=== PATIENT | female | born 1965 | race Caucasian/White ===

== ENCOUNTER → 2020-08-12 10:29 | Outpatient (BNVA) | payer OTHER, SELFPAY | PROVIDERS: Family Provider Family Medicine; Visit Provider Family Medicine | DX: E78.00 Pure hypercholesterolemia, unspecified (principal); F32.0 Major depressive disorder, single episode, mild; I10 Essential (primary) hypertension; G47.33 Obstructive sleep apnea (adult) (pediatric); Z12.31 Encounter for screening mammogram for malignant neoplasm of breast; Z00.00 Encounter for general adult medical examination without abnormal findings | CPT/HCPCS: 80053; 80061; 85025 ==

== ENCOUNTER 2020-08-29 15:02 | Outpatient (CLI) | payer OTHER, SELFPAY ==
--- NOTE | 2020-08-29 15:30 | MM_ITS ---
WS: [id number] BILATERAL SCREENING DIGITAL MAMMOGRAM WITH CAD HISTORY: screening COMPARISON: 08/22/2019 and 06/30/2018 Bilateral CC and MLO views submitted. Computer aided detection analyzed. Breast composition: There are scattered areas of fibroglandular density. No suspicious masses, microc alcifications or architectural distortion. Benign calcifications in each breast. No suspicious masses . MM/[id number] IMPRESSION: BI-RADS: 2-Benign FOLLOW UP: 1 Year Follow-up
== END 2020-08-29 15:03 | disposition home or self-care (01) ==
LOC: RADSHAW 15:07
PROVIDERS: PCP Family Medicine; Visit Provider Family Medicine
DX: Z12.31 Encounter for screening mammogram for malignant neoplasm of breast (principal)
CPT/HCPCS: 77067

== ENCOUNTER 2020-09-09 06:51 | Day surgery (SDC) | payer OTHER, SELFPAY ==
[2020-09-05 12:31] VITALS: BMI 48.7
[2020-09-09 07:07] VITALS: BP 174/100; PULSE 95; RESP 18; TEMP 37; O2SAT 94
--- NOTE | 2020-09-09 07:13 | ANES.PREANE2 ---
Pre-Anesthetic Assessment Pre-Anesthetic Assessment: Height/Weight: Height 1.68 m Weight 136.985 kg Temp Pulse Resp BP Pulse Ox 98.6 F 95 18 174/100 94 09/09/20 07:07 09/09/20 07:07 09/09/20 07:07 09/09/20 07:07 09/09/20 07:07 Preop Diagnosis: screening colonoscopy Proposed Procedure: Operation Date: 09/09/20 08:00 Proposed Procedures p Colonoscopy 426472 Z12.11(Not Applicable) - Shravan Gonsalez MD Last intake: Intake Last Liquid Date 09/08/20 Last Liquid Time 20:00 Last Solid Date 09/07/20 Last Solid Time 20:00 Social: Social History: No alcohol and No tobacco Exam: Pre-Anes Outpt Exam: alert, oriented x 3, clear to auscultation bilaterally and regular rate & rhythm Airway: Submandibular: WNL Cervical ROM: WNL MP: 2 Additional comments: teeth ok History/ROS: No significant history except as noted Pulmonary: Pulmonary: [place] and Sleep apnea CV/HEM: CV/HEM: HTN : : None reported Hepatic: Hepatic: None reported GI: GI: GERD Metabolic: Metabolic: Hyperlipidemia and Morbid obesity Musc/skel: Musc/skel: None reported Neuropsych: Neuropsych: Depression Anesthetic Plan: ASA status: 2 Anesthesia: Anesthesia Evaluation and MAC Risk of > 500 ml blood loss (7ml/kg in children): No PFSH Anesthesia PFSH: Medical History Hypercholesteremia Hypertension Mild depression Surgical History H/O colonoscopy H/O esophagogastroduodenoscopy History of carpal tunnel surgery History of delivery History of cholecystectomy History of myringotomy History of tonsillectomy History of tonsillectomy and adenoidectomy Family History Denies family history of Anesthesia complication Bleeding disorder Social History Smoking and tobacco status: never smoked Alcohol intake: never Data Anesthesia Cardiac Studies: No Data to Display
[2020-09-09] MEDS: sodium chloride 0.9% 1,000 ML 30 ML IV (07:21)
--- NOTE | 2020-09-09 07:25 | P.HP_ITS ---
Same Day Surgery H&P Indication for Procedure/HPI DATE OF PROCEDURE: September 09, 2020 CHIEF COMPLAINT/INDICATIONFOR SURGICAL PROCEDURE: screening colonoscopy PREOP DIAGNOSIS: screening colonoscopy PLANNED PROCEDRUE: Operation Date: 09/09/20 08:00 Proposed Procedures p Colonoscopy 616784 Z12.11(Not Applicable) - Srhavan Gonsalez MD Medications/Allergies* Home Medications Medication Instructions Recorded Confirmed Type cetirizine 10 mg capsule 10 mg PO DAILY 08/12/20 09/05/20 History naproxen sodium 220 mg capsule 220 mg PO BID PRN 08/12/20 09/05/20 History Allergies/Adverse Reactions Allergy/AdvReac Type Severity Reaction Status Date / Time Sulfa (Sulfonamide Allergy itching Verified 08/22/20 16:28 Antibiotics) Current Medications: Generic Name Dose Route Start Last Admin Trade Name Freq PRN Reason Stop Dose Admin Sodium Chloride 1,000 mls @ 30 mls/hr 09/09/20 07:00 09/09/20 07:21 Sodium Chloride 0.9% IV 09/10/20 06:59 30 mls/hr .Q24H PHAIN Administration Pertinent History/Comorbid Conditions* Medical History (Updated 08/18/20 @ 11:18 by Cme Napier MD) Hypercholesteremia Hypertension Mild depression Surgical History (Updated 09/09/20 @ 07:15 by Donny Lockett MD) H/O colonoscopy H/O esophagogastroduodenoscopy History of carpal tunnel surgery History of delivery History of cholecystectomy History of myringotomy History of tonsillectomy History of tonsillectomy and adenoidectomy Family History (Updated 08/22/20 @ 16:29 by Cassi Murri[place] LPN) Denies family history of Anesthesia complication Bleeding disorder Social History Smoking and tobacco status: never smoked Alcohol intake: never Pertinent Exam Findings alert, oriented x 3, regular rate & rhythm and operative site marked Recommendations Surgery/Procedure today Coding Level of Care Code Acute Microbiological Lab Technician for Swathi Coyne
[2020-09-09 08:03] VITALS: BP 117/53; PULSE 81; RESP 18; TEMP 36.6; O2SAT 93
[2020-09-09 08:20] VITALS: BP 134/70; PULSE 83; RESP 18; O2SAT 93
== END 2020-09-09 08:45 | disposition home or self-care (01) ==
PROVIDERS: PCP Family Medicine; Visit Provider Surgery
PROC: 0DJD8ZZ Inspection of Lower Intestinal Tract, Via Natural or Artificial Opening Endoscopic (ICD-10-PCS; CPT 45378; principal; 2020-09-09 08:00)
DX: Z12.11 Encounter for screening for malignant neoplasm of colon (principal); D12.5 Benign neoplasm of sigmoid colon; K64.8 Other hemorrhoids; E78.00 Pure hypercholesterolemia, unspecified; I10 Essential (primary) hypertension; F32.9 Major depressive disorder, single episode, unspecified
CPT/HCPCS: 12345; 45380; 88305; J2704; J7030

== ENCOUNTER 2020-09-24 12:00 | Outpatient (CLI) | payer OTHER, SELFPAY | END 2020-09-24 12:01 | disposition home or self-care (01) | LOC: SLEEP 09-25 11:47 | PROVIDERS: PCP Family Medicine; Visit Provider Family Medicine | DX: G47.33 Obstructive sleep apnea (adult) (pediatric) (principal) | CPT/HCPCS: G0399 ==

== ENCOUNTER 2020-11-10 20:00 | Outpatient (CLI) | payer OTHER, SELFPAY | END 2020-11-10 20:01 | disposition home or self-care (01) | LOC: SLEEP 11-11 09:13 | PROVIDERS: PCP Family Medicine; Visit Provider Family Medicine | DX: G47.33 Obstructive sleep apnea (adult) (pediatric) (principal) | CPT/HCPCS: 95811 ==

== ENCOUNTER → 2021-06-29 14:44 | Outpatient (BNVA) | payer OTHER, SELFPAY | PROVIDERS: PCP Family Medicine; Visit Provider Family Medicine | DX: M17.0 Bilateral primary osteoarthritis of knee (principal) | CPT/HCPCS: 73562 ==

== ENCOUNTER → 2021-08-12 10:00 | Outpatient (BNVA) | payer OTHER, SELFPAY | PROVIDERS: PCP Family Medicine; Visit Provider Family Medicine | DX: Z00.00 Encounter for general adult medical examination without abnormal findings (principal); E78.00 Pure hypercholesterolemia, unspecified; M17.0 Bilateral primary osteoarthritis of knee; I10 Essential (primary) hypertension | CPT/HCPCS: 80053; 80061; 85025 ==

== ENCOUNTER 2021-11-09 08:20 | Outpatient (CLI) | payer OTHER, SELFPAY ==
--- NOTE | 2021-11-09 08:34 | MM_ITS ---
WS: [id number] BILATERAL SCREENING DIGITAL MAMMOGRAM WITH CAD HISTORY: SCREENING COMPARISON: 08/29/2020, 08/22/2019 Bilateral CC and MLO views submitted. Computer aided detection analyzed. Breast composition: There are scattered areas of fibroglandular density. No suspicious masses, microc alcifications or architectural distortion. Benign scattered tiny calcifications within each breast. N o focal cluster of calcifications. MM/[id number] IMPRESSION: BI-RADS: 2-Benign FOLLOW UP: 1 Year Follow-up
== END 2021-11-09 08:21 | disposition home or self-care (01) ==
LOC: RADSHAW 08:26
PROVIDERS: PCP Family Medicine; Visit Provider Family Medicine
DX: Z12.31 Encounter for screening mammogram for malignant neoplasm of breast (principal)
CPT/HCPCS: 77067

== ENCOUNTER → 2022-01-27 11:35 | Outpatient (BNVA) | payer OTHER, SELFPAY | PROVIDERS: PCP Family Medicine; Visit Provider Family Medicine | DX: E11.9 Type 2 diabetes mellitus without complications (principal) | CPT/HCPCS: 83036 ==

== ENCOUNTER → 2022-08-09 09:50 | Outpatient (BNVA) | payer OTHER, SELFPAY | PROVIDERS: PCP Family Medicine; Visit Provider Family Medicine | DX: I10 Essential (primary) hypertension (principal); Z12.4 Encounter for screening for malignant neoplasm of cervix | CPT/HCPCS: 80053; 85025; 88175 ==

== ENCOUNTER → 2022-08-11 14:17 | Outpatient (BNVA) | payer OTHER, SELFPAY | PROVIDERS: PCP Family Medicine; Visit Provider Family Medicine | DX: E78.00 Pure hypercholesterolemia, unspecified (principal) | CPT/HCPCS: 80061 ==

== ENCOUNTER 2022-11-19 06:54 | Outpatient (CLI) | payer OTHER, SELFPAY ==
--- NOTE | 2022-11-19 07:25 | MM_ITS ---
WS: [id number] BILATERAL SCREENING DIGITAL TOMOSYNTHESIS MAMMOGRAM WITH CAD HISTORY: SCREENING COMPARISON: 11/09/2021, 08/29/2020 Bilateral CC and MLO views with tomosynthesis and synthetic mammography submitted. Computer aided det ection analyzed. Breast composition: There are scattered areas of fibroglandular density. No suspicious masses, microc alcifications or architectural distortion. Benign scattered calcifications. MM/[place] [id number] IMPRESSION: BI-RADS: 2-Benign FOLLOW UP: 1 Year Follow-up
== END 2022-11-19 06:55 | disposition home or self-care (01) ==
LOC: RAD 06:55
PROVIDERS: PCP Family Medicine; Visit Provider Family Medicine
DX: Z12.31 Encounter for screening mammogram for malignant neoplasm of breast (principal)
CPT/HCPCS: 77063; 77067

== ENCOUNTER 2023-11-07 10:52 | Outpatient (CLI) | payer OTHER, SELFPAY ==
--- NOTE | 2023-11-07 10:57 | XRR_ITS ---
PROCEDURE INFORMATION: Exam: XR Right Knee Exam date and time: 11/07/2023 11:09 AM Age: 58 years old Clinical indication: Pain; Knee; Right; Additional info: Worsening pain. No history of recent trauma or surgery is provided. TECHNIQUE: Imaging protocol: Radiologic exam of the right knee. 3image(s) are provided. Views: 3 views. COMPARISON: CR XR knee RT 3V* [id number] 06/29/2021 2:49 PM FINDINGS: Bones/joints: There is a small amount of joint fluid present. There is some chronic multi compartmental degeneration present with spurring and narrowing including at the patellofemoral and medial compartments along with some subchondral cystic related change. This can also be seen with some chondromalacia for example at the posterior patellar surface. Osseous alignment is maintained. No interval displaced fracture or dislocation is appreciated. Soft tissues: No radiopaque foreign body or subcutaneous emphysema is appreciated. There is some slight prominence of the soft tissues overall. There are some chronic soft tissue type calcifications for example posteriorly. Other findings: No other significant interval changes are appreciated. XR/XR knee RT 3V* [id number] IMPRESSION: There is some chronic multi compartmental degeneration demonstrated with spurring and narrowing most pronounced of the patellofemoral and medial compartments with some suspected chondromalacia.
== END 2023-11-07 10:53 | disposition home or self-care (01) ==
LOC: RAD 10:53
PROVIDERS: PCP Family Medicine; Visit Provider Family Medicine
DX: M17.0 Bilateral primary osteoarthritis of knee (principal); Z01.89 Encounter for other specified special examinations
CPT/HCPCS: 73562; 80053; 80061; 85025

== ENCOUNTER → 2023-11-11 07:40 | Outpatient (BNVA) | payer OTHER, SELFPAY | PROVIDERS: PCP Family Medicine; Visit Provider Otolaryngology | DX: H65.33 Chronic mucoid otitis media, bilateral (principal); H90.0 Conductive hearing loss, bilateral; H69.93 Unspecified Eustachian tube disorder, bilateral; E66.01 Morbid (severe) obesity due to excess calories; G47.33 Obstructive sleep apnea (adult) (pediatric); Z68.42 Body mass index [BMI] 45.0-49.9, adult; Z99.89 Dependence on other enabling machines and devices | CPT/HCPCS: 99204 ==

== ENCOUNTER 2023-11-20 15:02 | Outpatient (CLI) | payer OTHER, SELFPAY ==
--- NOTE | 2023-11-20 15:12 | XRR_ITS ---
PROCEDURE INFORMATION: Exam: XR Right Hip Exam date and time: 11/20/2023 3:13 PM Age: 58 years old Clinical indication: Right hip; Patient HX: Intermittent RT hip pain TECHNIQUE: Imaging protocol: Radiologic exam of the right hip. Views: 1 view hip with pelvis when performed. COMPARISON: No relevant prior studies available. FINDINGS: Bones/joints: No acute fracture. Mild DJD of the right hip. Soft tissues: Unremarkable. XR/XR hip RT 2-3V wo/w pel* [id number] IMPRESSION: No acute findings. Mild DJD of the right hip.
== END 2023-11-20 15:03 | disposition home or self-care (01) ==
PROVIDERS: PCP Family Medicine; Visit Provider Emergency Medicine
DX: M16.11 Unilateral primary osteoarthritis, right hip (principal)
CPT/HCPCS: 73502

== ENCOUNTER 2023-11-30 09:41 | Outpatient (CLI) | payer OTHER, SELFPAY ==
--- NOTE | 2023-11-30 09:41 | MM_ITS ---
WS: [id number] BILATERAL SCREENING DIGITAL TOMOSYNTHESIS MAMMOGRAM WITH CAD HISTORY: SCREENING COMPARISON: 11/19/2022, 11/09/2021 Bilateral CC and MLO views with tomosynthesis and synthetic mammography submitted. Computer aided det ection analyzed. Breast composition: There are scattered areas of fibroglandular density. No suspicious masses, microc alcifications or architectural distortion. Benign calcifications scattered within each breast. IMPRESSION: MM/[place] [id number] BI-RADS: 2-Benign FOLLOW UP: 1 Year Follow-up
== END 2023-11-30 09:42 | disposition home or self-care (01) ==
LOC: RAD 09:41
PROVIDERS: PCP Family Medicine; Visit Provider Family Medicine
DX: Z12.31 Encounter for screening mammogram for malignant neoplasm of breast (principal)
CPT/HCPCS: 77063; 77067

== ENCOUNTER → 2023-12-12 16:24 | Outpatient (BNVA) | payer OTHER, SELFPAY | PROVIDERS: PCP Family Medicine; Visit Provider Otolaryngology | DX: H69.93 Unspecified Eustachian tube disorder, bilateral (principal); H90.0 Conductive hearing loss, bilateral | CPT/HCPCS: 99212; 99213 ==

== ENCOUNTER → 2024-01-23 14:12 | Outpatient (BNVA) | payer OTHER, SELFPAY | PROVIDERS: PCP Family Medicine; Visit Provider Otolaryngology | DX: H61.23 Impacted cerumen, bilateral (principal); H90.0 Conductive hearing loss, bilateral; H69.93 Unspecified Eustachian tube disorder, bilateral | CPT/HCPCS: 69210; 99213 ==

== ENCOUNTER → 2024-02-20 14:27 | Outpatient (BNVA) | payer OTHER, SELFPAY | PROVIDERS: PCP Family Medicine; Visit Provider Family Medicine | DX: N95.0 Postmenopausal bleeding (principal) | CPT/HCPCS: 80053; 85025; 86304 ==

== ENCOUNTER 2024-02-22 13:30 | Outpatient (CLI) | payer OTHER, SELFPAY ==
--- NOTE | 2024-02-22 13:45 | US_ITS ---
WS: [id number] US pelv w/transvag [id number] HISTORY: post menopausal bleeding COMPARISON: None available. Nondiagnostic transvaginal evaluation. Imaging is slightly better quality on the transabdominal exam. Uterus: 8.1 cm x 4.9 cm x 4.8 cm. Normal size anteverted uterus. No fibroid or mass. Endometrium: 0.2 cm. Thin endometrium seen only on transabdominal imaging. Neither ovary is identified. No adnexal mass. US/US pelv w/transvag [id number] IMPRESSION: 1. This is a very limited and incomplete evaluation of the endometrium. 2. Transvaginal imaging quality is suboptimal. 3. Endometrium seen by transabdominal imaging is thin at 2 mm.
== END 2024-02-22 13:31 | disposition home or self-care (01) ==
LOC: RAD 13:31
PROVIDERS: PCP Family Medicine; Visit Provider Family Medicine
DX: N95.0 Postmenopausal bleeding (principal)
CPT/HCPCS: 76830; 76856

== ENCOUNTER 2024-04-17 08:57 | Day surgery (SDC) | payer OTHER, SELFPAY ==
--- NOTE | 2024-04-09 08:46 | ANES.PREANE2 ---
Pre-Anesthetic Assessment Height/Weight: Height 1.68 m Operation Date: 04/17/24 07:10 Proposed Procedures p Hysteroscopy w/ Myosure 71862, N 95.0(Not Applicable) - Corey Castañeda MD s Dilation And Curettage (D&C)(Not Applicable) - Corey Castañeda MD Familial anesthetic complications: None Was Beta Eladio taken within 24 hours: N/A Was Clonidine taken within 24 hours: N/A Social No alcohol and No tobacco Exam alert, oriented x 3, clear to auscultation bilaterally and regular rate & rhythm Airway Mallampati: Class II Dentition: full Pulmonary Sleep Apnea CV/HEM Hypertension Metabolic Hyperlipidemia and Morbid Obesity Anesthetic Plan ASA status: 3 Anesthesia: General Risk of > 500 ml blood loss (7ml/kg in children): No Medications/Allergies Home Medications Medication Instructions Recorded Confirmed Last Taken Type cetirizine 10 mg capsule (Zyrtec) 10 mg PO DAILY 08/12/20 04/09/24 04/09/24 History fluticasone propionate 50 2 spray intranasal DAILY 12 months 11/11/23 04/09/24 04/08/24 Rx mcg/actuation nasal #16 grams spray,suspension acetaminophen 650 mg 650 mg PO Q8H 04/09/24 04/09/24 04/09/24 History tablet,extended release (Tylenol Arthritis Pain) hydrochlorothiazide 25 mg tablet 25 mg PO DAILY 04/09/24 04/09/24 04/09/24 History lisinopril 20 mg tablet 20 mg PO DAILY 04/09/24 04/09/24 04/09/24 History oxybutynin chloride 5 mg tablet 10 mg PO DAILY 04/09/24 04/09/24 04/09/24 History simvastatin 10 mg tablet 10 mg PO DAILY 04/09/24 04/09/24 04/09/24 History venlafaxine 75 mg tablet 75 mg PO DAILY 04/09/24 04/09/24 04/09/24 History Allergies Allergy/AdvReac Type Severity Reaction Status Date / Time Sulfa (Sulfonamide Allergy itching Verified 03/05/24 09:34 Antibiotics) [facility] Anesthesia Medical History Osteoarthritis of both knees Hypertension Mild depression Hypercholesteremia Surgical History Status post colonoscopy with polypectomy (09/09/20) History of tonsillectomy History of myringotomy History of carpal tunnel surgery History of tonsillectomy and adenoidectomy History of cholecystectomy History of delivery H/O esophagogastroduodenoscopy H/O colonoscopy Family History Denies family history of Anesthesia complication Bleeding disorder Social History Smoking and tobacco/nicotine status: never used tobacco/nicotine Alcohol intake: never Substance/Drug Use: never Data Anesthesia Cardiac Studies: No Data to Display
[2024-04-17] VITALS (11 sets, daily range): BP systolic 133–190; BP diastolic 65–96; PULSE 81–89; RESP 12–18; TEMP 36.3–36.8; O2SAT 94–100; BMI 46.6
[2024-04-17] MEDS: sodium chloride 0.9% 1,000 ML 30 ML IV ×2 (09:53→11:38)
[2024-04-17 10:05] LABS: Basophils # 0.1 10^3/uL (0.0-0.1); Basophils % 0.7 %; Eosinophils # 0.1 10^3/uL (0.0-0.8); Eosinophils % 1.6 %; Lymphocytes # 2.1 10^3/uL (0.8-4.8); Lymphocytes % 27.9 %; Mean Corpuscular HGB Conc 33.8 g/dL (30-55); Mean Corpuscular Hemoglobin 31.5 pg (27-33); Mean Corpuscular Volume 93.1 fl (85-98); Mean Platelet Volume 9.3 fL (7.4-10.4); Monocytes # 0.6 10^3/uL (0.2-0.9); Monocytes % 8.6 %; Neutrophils # 4.47 10^3/uL (1.8-7.7); Neutrophils % 60.9 %; Nucleated Red Blood Cells % 0 %; Platelet Count 206 10^3/cmm (157-399); Red Blood Count 4.51 10^6/uL (3.85-5.65); White Blood Count 7.34 10^3/uL (3.29-11.43)
--- NOTE | 2024-04-17 10:10 | ANES.PAUD2 ---
Pre-Anesthetic Update Pre-Anesthetic Assessment: Date of Surgery/Procedure: 04/17/24 Proposed Procedure: Operation Date: 04/17/24 10:40 Proposed Procedures p Hysteroscopy w/ Myosure 90668, N 95.0(Not Applicable) - Corey Castañeda MD s Dilation And Curettage (D&C)(Not Applicable) - Corey Castañeda MD Any changes to Pre-Anesthetic Assessment?: No Last Intake: Intake Last Liquid Date 04/16/24 Last Liquid Time 22:00 Last Solid Date 04/16/24 Last Solid Time 22:00 Labs Last 48hrs: Short CBC 04/17/24 Range/Units 09:50 WBC 7.34 (3.29-11.43) 10^ 3/uL Hgb 14.20 (11.27-16.99) g/ dL Hct 42.0 (36-47) % MCV 93.1 (85-98) fl Plt Count 206 (157-399) 10^3/c mm Neut % (Auto) 60.9 % Neut # (Auto) 4.47 (1.8-7.7) 10^3/u L Vitals: Temperature 98.3 F 04/17/24 09:31 Temperature Source Temporal Artery S can 04/17/24 09:31 Pulse Rate 81 04/17/24 09:31 Pulse Rhythm Regular 04/17/24 09:31 Pulse Strength 3+ Normal 04/17/24 09:31 Respiratory Rate 18 04/17/24 09:31 Blood Pressure 176/91 04/17/24 09:54 Blood Pressure Ilz n 119 04/17/24 09:54 Pulse Oximetry 95 04/17/24 09:31 Oxygen Delivery Me thod Room Air 04/17/24 09:31 Exam: Pre-Anes Outpt Exam: alert, oriented x 3, clear to auscultation bilaterally and regular rate & rhythm Cardiac Studies: No Data to Display
[2024-04-17 10:31] LABS: Anion Gap 17.9 (5-19); Blood Urea Nitrogen 13 mg/dL (6-20); Calcium 9.2 mg/dL (8.5-10.5); Carbon Dioxide 26 mmol/L (22-29); Chloride 103 mmol/L (98-107); Glomerular Filtration Rate 102.7 mL/min (90-130); Glucose 111 mg/dL (65-115); Osmolality Calculated 297 mOsm/kg (285-295); Potassium 3.9 mmol/L (3.5-5.1); Sodium 143 mmol/L (136-145)
[2024-04-17] MEDS: ceFAZolin 3,000 MG in sodium chloride 0.9% (plus) 100 ML 200 MG IV (11:33)
--- NOTE | 2024-04-17 11:58 | W.PM.OPSUD ---
Surgery/Procedure H&P Update DATE OF PROCEDURE: April 17, 2024 DATE H&P PERFORMED: 04/06/24 H&P UPDATE INFORMATION: I have reviewed H&P completed within last 30 days, I have examined patient prior to procedure and No changes to prior documentation PLANNED PROCEDURE: Operation Date: 04/17/24 10:40 Proposed Procedures p Hysteroscopy w/ Myosure 69096, N 95.0(Not Applicable) - Corey Castañeda MD s Dilation And Curettage (D&C)(Not Applicable) - Corey Castañeda MD
--- NOTE | 2024-04-17 13:14 | PM.OP ---
Operative Report Date of procedure: April 17, 2024 Pre-op diagnosis: Postmenopausal bleed Post-op diagnosis: same Procedure done: Dilation and curettage Specimens removed/disposition: Endometrial curettings Surgeon: Corey Castañeda MD Estimated blood loss (mL): 5 IV fluids (mL): 400 Complications: Hysteroscope could not be used to assess uterine cavity due to body habitus and the scope was not long enough. Findings: cervical stenosis Procedure: After informed consent, the risks included but were not limited to bleeding, infection, injury to internal organs. The patient was counseled on a possible laparotomy and on the potential need for hysterectomy. The patient expressed understanding of the risks involved, all questions were answered, and the patient consented to the procedure. The patient was taken to the operating room where general anesthesia was administered. She was placed in the dorsal lithotomy position and prepped and draped in sterile fashion. A time out procedure was performed. The patient was examined under anesthesia and found to have a normal uterus with normal adnexa. A sterile large speculum was placed in the vaginato be able to reach the cervix, and the anterior lip of cervix was grasped with the single toothed tenaculum. The uterus was then gently sounded to 6 cm, and the cervix was dilated with cervical dilators. A 2.7-cm hysteroscope was advanced gently into the vagina but was not long enough to reach the the cervix and uterine cavity could not be visualized. A curettage was then performed until a gritty texture was noted. There was minimal bleeding noted and the tenaculum removed with goad hemostasis noted. The patient tolerated the procedure well. The patient was taken to the recovery area in stable condition.
--- NOTE | 2024-04-17 13:40 | ANE.PACU2 ---
Inpatient post-anesthesia follow up: Airway intact: Yes Vital signs: Temperature 97.4 F Pulse Rate 82 Respiratory Rate 17 Blood Pressure 150/83 Pulse Oximetry 94 Oxygen Delivery Me thod Room Air Oxygen Flow Rate 6 Fraction of Inspir ed Oxygen Hydration adequate: Yes Nausea and vomiting: No Pain level: 1 Mental status: Baseline
== END 2024-04-17 14:32 | disposition home or self-care (01) ==
PROVIDERS: Anesthesiology; PCP Family Medicine; Visit Provider Obstetrics & Gynecology
PROC: 0UDB8ZZ Extraction of Endometrium, Via Natural or Artificial Opening Endoscopic (ICD-10-PCS; CPT 58558; principal; 2024-04-17 10:30)
PROC: (CPT 58120; 2024-04-17 10:30)
DX: N95.0 Postmenopausal bleeding (principal); G47.30 Sleep apnea, unspecified; I10 Essential (primary) hypertension; E78.5 Hyperlipidemia, unspecified; E66.01 Morbid (severe) obesity due to excess calories; Z68.42 Body mass index [BMI] 45.0-49.9, adult
CPT/HCPCS: 58120; 36415; 80048; 85025; 86850; 86900; 88305; J0690; J1100; J1885; J2405; J2704; J3010; J7030

== ENCOUNTER → 2024-11-26 15:37 | Outpatient (BNVA) | payer OTHER, SELFPAY | PROVIDERS: PCP Family Medicine; Visit Provider Family Medicine | DX: I10 Essential (primary) hypertension (principal); E78.00 Pure hypercholesterolemia, unspecified; H61.23 Impacted cerumen, bilateral; Z78.9 Other specified health status | CPT/HCPCS: 80053; 80061; 85025 ==

== ENCOUNTER 2025-01-04 09:42 | Outpatient (CLI) | payer OTHER, SELFPAY ==
--- NOTE | 2025-01-04 | MM_ITS ---
WS: [id number] Bilateral screening 3D tomosynthesis digital mammogram, 01/04/2025 9:46 AM Clinical Data: ANNUAL SCREENING Comparison: 05/01/2024, 11/19/2022, 12/07/2021, 08/29/2020, 08/22/2019, 06/30/2018, 08/11/2016, 04/24/2015. Findings: No spiculated masses or clustered calcifications are seen. There are no secondary signs of carcinoma. MM/MM scr BI tomosynthesis [id number] Impression: Negative bilateral mammogram unchanged. Recommend annual screening mammograms. BIRADS: 1 - Negative FOLLOW UP: 1 Year Follow-up DENSITY: There are scattered areas of fibroglandular density. The CAD sales store checker was used
== END 2025-01-04 09:43 | disposition home or self-care (01) ==
PROVIDERS: PCP Family Medicine; Visit Provider Family Medicine
DX: Z12.31 Encounter for screening mammogram for malignant neoplasm of breast (principal); E78.00 Pure hypercholesterolemia, unspecified; I10 Essential (primary) hypertension; R92.323 Mammographic fibroglandular density, bilateral breasts
CPT/HCPCS: 77063; 77067; 80053

== ENCOUNTER → 2025-01-10 07:24 | Outpatient (BNVA) | payer OTHER, SELFPAY | PROVIDERS: PCP Family Medicine; Visit Provider Family Medicine | DX: R73.9 Hyperglycemia, unspecified (principal) | CPT/HCPCS: 83036 ==

== ENCOUNTER 2025-01-14 06:57 | Outpatient (CLI) | payer OTHER, SELFPAY ==
--- NOTE | 2025-01-14 07:00 | US_ITS ---
WS: [id number] RIGHT UPPER QUADRANT ULTRASOUND HISTORY: R74.01 - Elevation of levels of liver transaminase levels COMPARISON: None available. Liver: 21.0 cm in length. Markedly enlarged liver with marked coarse echotexture and hepatic steatosis. No mass identified. No intrahepatic duct dilatation. Portal Vein: Normal hepatopetal flow with monophasic waveform. Gallbladder: Prior cholecystectomy. CBD: 0.3 cm Pancreas: Not visualized. Right kidney: 12.1 cm in length. Normal size and echogenicity. No hydronephrosis or mass. Aorta and IVC: Unremarkable abdominal aorta and IVC. No ascites. US/US liver [id number] IMPRESSION: 1. Marked hepatomegaly with hepatic steatosis. No intrahepatic duct dilatation . 2. Prior cholecystectomy.
== END 2025-01-14 06:58 | disposition home or self-care (01) ==
PROVIDERS: PCP Family Medicine; Visit Provider Family Medicine
DX: R74.01 Elevation of levels of liver transaminase levels (principal); E66.01 Morbid (severe) obesity due to excess calories; E78.00 Pure hypercholesterolemia, unspecified; R16.0 Hepatomegaly, not elsewhere classified; K76.0 Fatty (change of) liver, not elsewhere classified; Z90.49 Acquired absence of other specified parts of digestive tract
CPT/HCPCS: 76705

== ENCOUNTER → 2025-04-12 09:36 | Outpatient (BNVA) | payer BC, SELFPAY | PROVIDERS: PCP Family Medicine; Visit Provider Family Medicine | DX: K76.0 Fatty (change of) liver, not elsewhere classified (principal); I10 Essential (primary) hypertension | CPT/HCPCS: 80061; 83036 ==

== ENCOUNTER → 2025-04-17 11:59 | Outpatient (BNVA) | payer BC, SELFPAY | PROVIDERS: PCP Family Medicine; Visit Provider Family Medicine | DX: E78.00 Pure hypercholesterolemia, unspecified (principal); I10 Essential (primary) hypertension | CPT/HCPCS: 80053 ==

== ENCOUNTER → 2025-07-01 10:45 | Outpatient (BNVA) | payer BC, SELFPAY | PROVIDERS: PCP Family Medicine; Visit Provider Family Medicine | DX: R73.9 Hyperglycemia, unspecified (principal) | CPT/HCPCS: 82962 ==